=== PATIENT | male | born 1940 | race Caucasian/White ===

== ENCOUNTER 2025-01-15 13:39 | Inpatient (IN) ==
[2025-01-15] MEDS: PLASMA-LYTE A 500 ML IV ONE (14:21)
[2025-01-15 14:28] LABS: Hematocrit (blood only) 49.6 % (42.0-52.0); Hemoglobin 16.9 g/dL (14.0-18.0); Mean Corpuscular Hemoglobin 31.8 pg (25.0-34.0); Mean Corpuscular Volume 93.2 fL (80.0-100.0); Platelet Count 192 K/uL (130-400); RDW Standard Deviation 42.3 fL (36.4-46.3); Red Blood Count 5.32 M/uL (4.70-6.10); White Blood Count 14.37 K/ul (4.8-10.8)
[2025-01-15 14:48] LABS: Immature Granulocytes # (auto) 0.05 K/uL (0.01-0.20); Immature Granulocytes % (auto) 0.3 %
[2025-01-15 14:52] LABS: Alanine Aminotransferase 16.0 U/L (7-52); Albumin Globulin Ratio 1.1 (0.9-2); Albumin Level 3.9 gm/dl (3.4-5.0); Alkaline Phosphatase 113.0 U/L (34-104); Anion Gap 7.0 (3-11); Bilirubin,Total 1.0 mg/dl (0.2-1.0); Blood Urea Nitrogen 19.0 mg/dl (6-23); Calcium 9.1 mg/dl (8.6-10.3); Carbon Dioxide 27.0 mmol/L (21-32); Chloride 104.0 mmol/L (98-107); Creatinine Clr Calc Pharmacy 58.9 ml/min; Globulin 3.7 gm/dl (2.5-4.0); Glucose 127.0 mg/dl (70-99(Fasting)); Lipase 28.0 U/L (11-82); Potassium 4.2 mmol/L (3.5-5.1); Sodium 138.0 mmol/L (136-145); Total Protein 7.6 gm/dl (6.0-8.3)
[2025-01-15] MEDS: OPTIRAY 320 100ml IV ONE (15:10)
--- NOTE | 2025-01-15 15:36 | Electrocardiogram Report ---
Test Reason : Blood Pressure : */* mmHG Vent. Rate : 89 BPM Atrial Rate : 89 BPM P-R Int : 156 ms QRS Dur : 80 ms QT Int : 382 ms P-R-T Axes : 72 26 67 degrees QTcB Int : 464 ms Normal sinus rhythm Nonspecific ST and T wave abnormality Abnormal ECG No previous ECGs available Confirmed by Riaz Kelly ([id number]) on 01/15/2025 3:35:45 PM Referred By: Confirmed By: Riaz Kelly
--- NOTE | 2025-01-15 15:37 | CT Scan Report ---
CT SCAN OF THE ABDOMEN AND PELVIS WITH IV CONTRAST CLINICAL HISTORY: Severe constipation. Possible bowel obstruction. COMPARISON STUDY: None TECHNIQUE: Following the IV administration of 93 cc of Optiray 320, CT scan of the abdomen and pelvi s is performed from the lung bases to the proximal femora. Images are reviewed in the axial, sagittal , and coronal planes. IV contrast was administered without complication. A dose lowering technique wa s utilized adhering to the principles of ALARA. CT DOSE: 665.39 mGy.cm FINDINGS: Lung bases: Dependent opacities within the right lower lobe including a 8 mm focus with a lucent cent er may represent areas of atelectasis/scarring. A six-month follow-up of the 8 mm lesion would seem p rudent. There are no significant pleural effusions. There are coronary artery calcifications. Liver: There are a few tiny subcentimeter hypodensities likely representing cysts. There is no domina nt solid masses. The hepatic and portal veins appear patent. Gallbladder: Unremarkable in appearance Spleen: No splenic masses identified. Pancreas: No ductal dilatation. No pancreatic masses identified. Adrenal glands: No adrenal masses are visualized. Kidneys: No solid renal masses are visualized. There are bilateral renal cysts. Largest on the left m easures 26 mm. The largest on the right measures 44 mm. There is a nonobstructing 3 mm lower pole rig ht renal calculus. There is no hydronephrosis. Abdominal vasculature: There is no evidence for abdominal aortic dilatation atheromatous changes are present within the abdominal aorta. Bowel: There are no transition zones to indicate bowel obstruction. There is moderate stool present t hroughout the colon. The rectum is dilated measuring 7.4 cm in transverse diameter. There is mild inf iltration of the perirectal fat . There is mild presacral fluid. This constellation of findings may indicate stercoral colitis. The appendix is visualized and appears normal. Peritoneum: There is trace peritoneal fluid. There is no free intraperitoneal air. There are small fa t-containing left inguinal hernia. Lymphadenopathy: There are no pathologically enlarged abdominal or pelvic lymph nodes. Pelvic viscera: The prostate is enlarged. No bladder lesions are delineated. Skeletal structures: There are no suspicious lytic or blastic skeletal lesions. IMPRESSION: 1. Large stool burden with rectal fecal impaction. There is borderline rectal wall thickening, and mi ld infiltration of the perirectal fat, and presacral fluid. This constellation of findings may indica te stercoral colitis. 2. 8mm right lower lobe pulmonary nodule. Six-month follow-up recommended 3. Prostatomegaly 4. Bilateral renal cysts. 5. Fat-containing left inguinal hernia ACT 112: Negative or not required by law. Electronically signed by: Cleveland Wallace M.D. 01/15/2025 3:35 PM
--- NOTE | 2025-01-15 15:59 | Emergency Department Note ---
Impression & Plan Fecal impaction, Constipation, Acute lower GI bleeding, Elevated lactic acid level ED Provider Note NAME: WAYLON PATTERSON AGE: 84 SEX: M : 1940 ARRIVES VIA: Ambulance INFORMANT: Patient, EMS, family ED PROVIDER(S): Chintan Haas DO CHIEF COMPLAINT: constipation, rectal bleeding HPI: This is an 84-year-old male with the PMHx of CAD, V. tach s/p ICD, paroxysmal atrial fibrillation on sotalol and chronic anticoagulation with apixaban, hyperlipidemia and chronic constipation presenting to [facility] for further evaluation of constipation. Patient is accompanied by his son who provide additional history. Patient is traveling from [place]. Has chronic constipation. Usually relieved by Metamucil as needed. Patient tried all events. No success. Patient has not had bowel movement since . They deny fever or chills. No cough or congestion. Denies chest pain or palpitations. No shortness of breath. They deny abdominal pain, nausea and vomiting. No urinary complaints. Patient denies recent changes in medications or OTC supplements. Patient offers no other complaints, today. ADDITIONAL HISTORY OBTAINED: Per HPI Chronic Medical/Social Conditions Affecting Care: Per HPI PAST MEDICAL HISTORY: See Below PAST SURGICAL HISTORY: See Below FAMILY HISTORY: See Below SOCIAL HISTORY: See Below HOME MEDICATIONS: See Below ALLERGIES: See Below VITALS: See Below PHYSICAL EXAMINATION: GENERAL: Sitting up in bed, alert, well appearing, well nourished, no distress, non-toxic EYE EXAM: normal conjunctiva. OROPHARYNX: no exudate, no erythema, lips, buccal mucosa, and tongue normal and mucous membranes are moist NECK: supple, no nuchal rigidity, no adenopathy, non-tender LUNGS: Clear to auscultation. Normal chest wall mechanics HEART: no murmurs, regular rate, regular rhythm ABDOMEN: abdomen soft, non-tender, no masses, no rebound or guarding. BACK: Back is symmetrical on inspection and there is no deformity, no midline tenderness, no CVA tenderness. SKIN: no rashes and no bruising UPPER EXTREMITIES: upper extremities are grossly normal. LOWER EXTREMITIES: No pitting edema. NEURO EXAM: Normal sensorium, GCS 15, normal speech, no gross weakness of arms, no gross weakness of legs. MEDICAL DECISION MAKING: Differential diagnoses includes but not limited to chronic constipation, lower GI bleeding, hemorrhoidal bleeding, anemia, electrolyte derangements, dehydration In summary, this is a 84 year old male who presented with constipation with rectal bleeding. Differential as above. Nursing notes and pertinent past medical records reviewed. Vital signs reviewed and the patient is afebrile and hemodynamically stable. History and presentation revealed patient has chronic constipation. He takes MiraLAX and Metamucil. Patient is chronically anticoagulated with apixaban. Mild lower GI bleeding present. Physical examination revealed as above. As a result of my initial evaluation, I do feel the patient likely has chronic constipation that has recently worsened. Doubt acute anatomical obstruction at this time other than stool burden but still a possibility. Given his rectal bleeding on top of this with chronic anticoagulation, will obtain CT imaging as well as basic labs. Diagnostics interpreted by me include EKG and cardiac monitoring as listed below: -Cardiac Monitoring: An order was placed for continuous cardiac monitoring. The monitor shows a rate of 80-90s with regular rhythm. -ECG: Normal sinus rhythm at a ventricular rate of [address] segment changes to suggest STEMI. Intervals are within normal limits. Patient completed laboratory studies and imaging. Results independently interpreted by me are minimal leukocytosis. No significant anemia. Kidney function electrolytes are normal. Does have mild elevation in his lactate. The patient was managed with IV fluid resuscitation. Patient unable have further stool following disimpaction. Still having some rectal bleeding. High risk Whiteside scoring. Rectal bleeding more likely related to stool burden and straining. I suspect very friable rectal mucosa. Patient unable to have a bowel movement. He does not feel that he is safe to return home at this time. Patient was discussed with the hospitalist team for admission for close observation of his rectal bleeding and further stool softeners and bowel regiment for his ongoing constipation. Hospitalist team was agreeable to admit the patient. Patient remained hemodynamically stable under my care. Consults/Care Managements Discussions: Per MDM ER treatment provided: See above Procedures: Manual disimpaction Generous lubricant used yielding moderate amount of brown stool balls Minimal blood present, light pink Soap suds enema used following the procedure Critical Care: None The chart was completed utilizing [employer] voice recognition software. Grammatical errors, random word insertions, pronoun errors, and incomplete sentences are an occasional consequence of this system due to software limitations, ambient noise, and hardware issues. Any formal questions or concerns about the content, text, or information contained within the body of this dictation should be directly addressed to the physician for clarification. 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 Atrial fibrillation Hx of ventricular tachycardia Hx of basal cell carcinoma Hx of melanoma of skin HLD (hyperlipidemia) CAD (coronary artery disease) Surgical History Hx of tonsillectomy History of implantable cardiac defibrillator (ICD) battery exchange in 2023 Hx of inguinal hernia repair left History of coronary artery stent placement Family History Father Lung cancer Mother Stroke Social History Smoking Status: Former smoker Smoking End Date: 10 years; Hx Alcohol Use: Yes Alcohol type: wine Hx Substance Use: No Preferred Language: Frisian Communication Ability: Effective Seam Sewer Required: No Beliefs That Will Affect Care: None Current Living Situation: Alone Current Living Situation Comment: Patient lives home alone, but son Hilario lives close to patient. Feels Safe at Home: Yes Safety Concerns: Feels Safe At This Time Assistive Devices: Walker and Wheelchair Allergies Allergies Allergy/AdvReac Type Severity Reaction Status Date / Time house dust Allergy Mild Congested Verified 01/15/25 23:14 pollen extracts Allergy Mild Congested Verified 01/15/25 18:08 Home Meds Home Medications Medication Instructions Recorded Confirmed apixaban 5 mg tablet (Eliquis) 5 mg PO BID 01/15/25 01/15/25 artificial tears with lanolin eye 1 applic OPB HS 01/15/25 01/15/25 ointment aspirin 81 mg tablet,delayed 81 mg PO QAM 01/15/25 01/15/25 release atorvastatin 20 mg tablet 20 mg PO HS 01/15/25 01/15/25 azelastine 137 mcg (0.1 %) nasal 2 spray intranasal QA 01/15/25 01/15/25 spray doxycycline monohydrate 50 mg 50 mg PO HS 01/15/25 01/15/25 capsule furosemide 20 mg tablet 20 mg PO [facility] 01/15/25 01/15/25 metoprolol succinate 25 mg 25 mg PO QA 01/15/25 01/15/25 tablet,extended release 24 hr nitroglycerin 0.4 mg sublingual 0.4 mg sublingual UD PRN Chest Pain 01/15/25 01/15/25 tablet peg 400 0.4 %-propylene glycol 2 drp OPB QA 01/15/25 01/15/25 (PF) 0.3 % eye drops (Systane Ultra (PF)) sotalol 120 mg tablet 60 mg PO [facility] 01/15/25 01/15/25 Results & Data (ED) Vital Signs Vital Signs - 24 hr 01/15/25 16:00 Pulse Rate [Apical] 95 H Respiratory Rate 20 Respiratory Effort / Characteristics Non-Labored Spontaneous Blood Pressure [Right Arm] 140/86 Blood Pressure Mean [Right Arm] 104 Pulse Oximetry 95 Oxygen Delivery Method Room Air Laboratory Data 01/16/25 06:52 01/16/25 06:52 Lab Results 01/15/25 01/15/25 Range/Units 14:12 15:51 WBC 14.37 H (4.8-10.8) K/ul RBC 5.32 (4.70-6.10) M/uL Hgb 16.9 (14.0-18.0) g/dL Hct 49.6 (42.0-52.0) % MCV 93.2 (80.0-100.0) fL MCH 31.8 (25.0-34.0) pg MCHC 34.1 (32.0-36.0) g/dL RDW Std Deviation 42.3 (36.4-46.3) fL RDW Coeff of Hattie 12.3 (11.5-14.5) % Plt Count 192 (130-400) K/uL MPV 10.0 (9.4-12.4) fL Immature Gran % (Auto) 0.3 % Neut % (Auto) 90.9 % Lymph % (Auto) 4.9 % [place] % (Auto) 3.5 % Eos % (Auto) 0.2 % Baso % (Auto) 0.2 % Neut # (Auto) 13.05 H (1.40-6.50) K/uL Lymph # (Auto) 0.71 L (1.20-3.40) K/uL [place] # (Auto) 0.50 (0.11-0.59) K/uL Eos # (Auto) 0.03 (0.00-0.50) K/uL Baso # (Auto) 0.03 (0.00-0.20) K/uL Immature Gran # (Auto) 0.05 (0.01-0.20) K/uL Sodium 138 (136-145) mmol/L Potassium 4.2 (3.5-5.1) mmol/L Chloride 104 (98-107) mmol/L Carbon Dioxide 27 (21-32) mmol/L Anion Gap 7 (3-11) BUN 19 (6-23) mg/dl Creatinine 0.90 (0.6-1.4) mg/dl Est Cr Clr Drug Dosing 58.9 ml/min eGFR 83.18 BUN/Creatinine Ratio 21.1 H (10-20) Glucose 127 H (70-99(Fasting)) mg/dl Lactate 2.1 H* (0.4-2.0) mmol/L Calcium 9.1 (8.6-10.3) mg/dl Total Bilirubin 1.0 (0.2-1.0) mg/dl AST 24 (13-39) U/L ALT 16 (7-52) U/L Alkaline Phosphatase 113 H (34-104) U/L Troponin I High Sens 4.9 (0-20) pg/ml Total Protein 7.6 (6.0-8.3) gm/dl Albumin 3.9 (3.4-5.0) gm/dl Globulin 3.7 (2.5-4.0) gm/dl Albumin/Globulin Ratio 1.1 (0.9-2) Lipase 28 (11-82) U/L Administered Medications Aspirin (Aspirin 81 Mg Ectab) 81 mg PO [facility] Stop: 02/15/25 08:59 Last Admin: 01/16/25 08:04 Dose: 81 mg Documented By: LILLIANA Atorvastatin Calcium (Atorvastatin 20 Mg Tab) 20 mg PO [facility] Stop: 02/14/25 23:03 Last Admin: 12/01/25 23:56 Dose: 20 mg Documented By: BORIS Azelastine HCl (Azelastine Hcl 0.1% Nasal 200 Sprays/27,400 Mcg Btl) 2 sprays NA QAM [facility] Stop: 02/15/25 08:59 Last Admin: 01/16/25 08:04 Dose: 2 sprays Documented By: LILLIANA Bisacodyl (Bisacodyl 10 Mg Supp) 10 mg MI BID [facility] Stop: 02/15/25 08:59 Last Admin: 01/16/25 09:22 Dose: 10 mg Documented By: LILLIANA Doxycycline Hyclate (Doxycycline Hyclate 50 Mg Cap) 50 mg PO [facility] Stop: 02/14/25 23:03 Last Admin: 01/15/25 23:55 Dose: 50 mg Documented By: BORIS Metoprolol Succinate (Metoprolol Succ 25mg Ext Rel Tab) 25 mg PO [facility] Stop: 02/15/25 08:59 Last Admin: 01/16/25 08:04 Dose: 25 mg Documented By: LILLIANA Multi-Ingredient Cream (Artificial Tears Op Oint 3.5 Gm Tube) 1 appln OP HS [facility] Stop: 02/14/25 23:03 Last Admin: 01/15/25 23:55 Dose: 1 appln Documented By: BORIS Polyethylene Glycol (Polyethylene (Miralax) 17 Gm Pack) 17 gm PO BID [facility] Stop: 02/14/25 23:03 Last Admin: 01/16/25 08:02 Dose: 17 gm Documented By: Admin: 01/15/25 23:54 Dose: 17 gm Documented By: BORIS Senna/Docusate Sodium (Docusate Sodium/Senna 50/8.6mg Tab) 1 tab PO BID [facility] Stop: 02/14/25 23:03 Last Admin: 01/16/25 08:02 Dose: 1 tab Documented By: Admin: 01/15/25 23:55 Dose: 1 tab Documented By: BORIS Sotalol HCl (Sotalol Hcl 80 Mg Tab) 60 mg PO BID [facility] Stop: 02/14/25 23:03 Last Admin: 01/16/25 08:05 Dose: 60 mg Documented By: Admin: 01/15/25 23:59 Dose: 60 mg Documented By: MLM Discontinued Medications Parenteral Electrolytes (Plasma-Lyte A Ph 7.4) 500 mls @ 999 mls/hr IV .Q31M ONE Stop: 01/15/25 14:15 Last Infusion: 01/15/25 15:00 Dose: Infused Documented By: Admin: 01/15/25 14:21 Dose: 999 mls/hr Documented By: SERA Sodium Chloride (Nss) 1,000 mls @ 80 mls/hr IV .[id number] ALEXIS Stop: 01/16/25 06:59 Last Infusion: 01/16/25 08:07 Dose: Infused Documented By: Admin: 01/15/25 19:33 Dose: 80 mls/hr Documented By: ABRIL Sodium Chloride (Nss) 500 mls @ 999 mls/hr IV .Q31M ONE Stop: 01/15/25 21:53 Last Admin: 01/15/25 23:06 Dose: Not Given Documented By: BORIS Ioversol (Optiray 320 100ml) 93 ml IV ONCE ONE Stop: 01/15/25 15:10 Last Admin: 01/15/25 15:10 Dose: 93 ml Documented By: ABS Imaging Data Radiologist's Impression: Abdomen/Pelvis CT 01/15/25 13:46 CT SCAN OF THE ABDOMEN AND PELVIS WITH IV CONTRAST CLINICAL HISTORY: Severe constipation. Possible bowel obstruction. COMPARISON STUDY: None TECHNIQUE: Following the IV administration of 93 cc of Optiray 320, CT scan of the abdomen and pelvis is performed from the lung bases to the proximal femora. Images are reviewed in the axial, sagittal, and coronal planes. IV contrast was administered without complication. A dose lowering technique was utilized adhering to the principles of ALARA. CT DOSE: 665.39 mGy.cm FINDINGS: Lung bases: Dependent opacities within the right lower lobe including a 8 mm focus with a lucent center may represent areas of atelectasis/scarring. A six- month follow-up of the 8 mm lesion would seem prudent. There are no significant pleural effusions. There are coronary artery calcifications. Liver: There are a few tiny subcentimeter hypodensities likely representing cysts. There is no dominant solid masses. The hepatic and portal veins appear patent. Gallbladder: Unremarkable in appearance Spleen: No splenic masses identified. Pancreas: No ductal dilatation. No pancreatic masses identified. Adrenal glands: No adrenal masses are visualized. Kidneys: No solid renal masses are visualized. There are bilateral renal cysts. Largest on the left measures 26 mm. The largest on the right measures 44 mm. There is a nonobstructing 3 mm lower pole right renal calculus. There is no hydronephrosis. Abdominal vasculature: There is no evidence for abdominal aortic dilatation atheromatous changes are present within the abdominal aorta. Bowel: There are no transition zones to indicate bowel obstruction. There is moderate stool present throughout the colon. The rectum is dilated measuring 7.4 cm in transverse diameter. There is mild infiltration of the perirectal fat . There is mild presacral fluid. This constellation of findings may indicate stercoral colitis. The appendix is visualized and appears normal. Peritoneum: There is trace peritoneal fluid. There is no free intraperitoneal air. There are small fat-containing left inguinal hernia. Lymphadenopathy: There are no pathologically enlarged abdominal or pelvic lymph nodes. Pelvic viscera: The prostate is enlarged. No bladder lesions are delineated. Skeletal structures: There are no suspicious lytic or blastic skeletal lesions. IMPRESSION: 1. Large stool burden with rectal fecal impaction. There is borderline rectal wall thickening, and mild infiltration of the perirectal fat, and presacral fluid. This constellation of findings may indicate stercoral colitis. 2. 8mm right lower lobe pulmonary nodule. Six-month follow-up recommended 3. Prostatomegaly 4. Bilateral renal cysts. 5. Fat-containing left inguinal hernia ACT 112: Negative or not required by law. Electronically signed by: Cleveland Wallace M.D. 01/15/2025 3:35 PM Discharge Plan Visit Data Chief Complaint: Constipation Stated Complaint: GI BLEED ED Provider: Chintan Haas Discharge Problem: Fecal impaction, Constipation, Acute lower GI bleeding, Elevated lactic acid level Patient Disposition: Admitted As Inpatient Condition: Fair Discharge Instructions Interventions: ED Discharge Assessment Last Done: 01/15/25 22:34
--- NOTE | 2025-01-15 17:47 | History & Physical Report ---
Date of Service January 15, 2025 Assessment & Plan (1) Constipation: (2) Fecal impaction: (3) BRBPR (bright red blood per rectum): (4) CAD (coronary artery disease): (5) Atrial fibrillation: (6) snf current use of anticoagulant: Plan This is an 84-year-old male who has a significant past medical history of CAD with history of coronary angioplasty and stent placement, history of V. tach status post ICD placement with recent battery exchange in 2023, atrial fibril lation chronically anticoagulated on Eliquis and on chronic antiarrhythmic sotalol, HLD, history of melanoma, history of basal cell, chronic history of constipation treated with daily MiraLAX who presents to ED secondary to inability to have a bowel movement for 5 days. --CT abd/pelvis: Large stool burden with rectal fecal impaction. There is borderline rectal wall thickening, and mild infiltration of the perirectal fat, and presacral fluid. This constellation of findings may indicate stercoral colitis. #Constipation #Fecal Impaction #Possible Stercoral colitis admit to medical received soap suds enema and manual disimpaction in ED with mild evacuation of stool, but pt still symptomatic Senna S BID, Miralax BID, prn dulcolax suppos consider additional enemas in am but will give break tonight due to irritation/rectal bleeding consider GI if not improvement NSS x 1 L overnight, reassess in a.m. need for additional fluids Full liquid diet for now, ADAT #BRBPR suspect 2/2 constipation, friable rectal mucosa pt on asa and eliquis hold evening dose of eliquis, resume in am in bleeding resolved check h/h this evening and in a.m. admitting hgb 16 #CAD #Atrial fibrillation #Hx of vtach s/p AICD placement with battery exchanged in 2023 continue ASA, Statin, Metoprolol, sotatolol hold eliquis this evening until re evaluated in a.m. #Pulmonary Nodule - 8mm right lower lobe pulmonary nodule. Six-month follow-up recommended #DVT ppx: SCDS for now FULL CODE PCP: Dr. Cohen Dispo: admit to medical, pt is from [place], suspect possible d/c tomorrow or when pt moving bowels Pt was seen and examined in collaboration with Dr. Peña, please see addendum I spent a total of 60 minutes coordinating, documenting and providing care for this patient excluding time spent in the performance of separately billed services or time spent by another provider/QHP. History of Present Illness Chief Complaint: Constipation since . Primary Care Provider: Gennaro Cohen This is an 84-year-old male who has a significant past medical history of CAD with history of coronary angioplasty and stent placement, history of V. tach status post ICD placement with recent battery exchange in 2023, atrial fibrillation chronically anticoagulated on Eliquis and on chronic antiarrhythmic sotalol, HLD, history of melanoma, history of basal cell, chronic history of constipation treated with daily MiraLAX who presents to ED secondary to inability to have a bowel movement for 5 days. Pt is visiting from [facility]. Him and his son/family drove down for the holiday. Plan was to return this a.[place]. to [place]. He typically takes daily Metamucil and has done this since back in the . He tried 2 fleet enemas and suppository without relief. Unfortunately due to travel and dietary changes over the last few days with the holiday he has been unable to have a bowel movement. He reports nausea, No vomiting or abdominal pain. He also reports bright red blood per rectum after suppository use. in ED patient was initially hypotensive but this resolved with 1 L of IV fluid. Lab work notable for mild leukocytosis of 14,000, stable H&H at 16.9 and 49.6, mildly elevated lactate at 2.[address] abdomen pelvis reveal large stool burden with rectal fecal impaction. Borderline rectal wall thickening and mild infiltration of the perirectal fat may indicate sterile coral colitis. 8-month right lower lobe pulmonary nodule also noted. ED provider provided patient with 2 fleets enemas as well as did a manual disimpaction. He did have some success, but was unable to completely disimpact patient. He does report liquid stool as well as some bloody substance after disimpaction. Allergies Allergy/AdvReac Type Severity Reaction Status Date / Time pollen extracts Allergy Mild Congested Verified 01/15/25 18:08 dust Allergy Mild Congested Uncoded 01/15/25 18:08 Home Medications Medication Instructions Recorded Confirmed Type apixaban 5 mg tablet (Eliquis) 5 mg PO BID 01/15/25 01/15/25 History artificial tears with lanolin eye 1 applic OPB HS 01/15/25 01/15/25 History ointment aspirin 81 mg tablet,delayed 81 mg PO QAM 01/15/25 01/15/25 History release atorvastatin 20 mg tablet 20 mg PO HS 01/15/25 01/15/25 History azelastine 137 mcg (0.1 %) nasal 2 spray intranasal QAM 01/15/25 01/15/25 History spray doxycycline monohydrate 50 mg 50 mg PO HS 01/15/25 01/15/25 History capsule furosemide 20 mg tablet 20 mg PO QAM 01/15/25 01/15/25 History metoprolol succinate 25 mg 25 mg PO QAM 01/15/25 01/15/25 History tablet,extended release 24 hr nitroglycerin 0.4 mg sublingual 0.4 mg sublingual UD PRN Chest Pain 01/15/25 01/15/25 History tablet peg 400 0.4 %-propylene glycol 2 drp OPB QA 01/15/25 01/15/25 History (PF) 0.3 % eye drops (Systane Ultra (PF)) sotalol 120 mg tablet 60 mg PO AMHS 01/15/25 01/15/25 History Past Med/Surg History Problem List (Updated 01/15/25 @ 18:38 by Mery Lebron PA-C) BRBPR (bright red blood per rectum) Fecal impaction Constipation Medical History (Updated 01/15/25 @ 18:38 by Mery Lebron PA-C) 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 Atrial fibrillation Hx of ventricular tachycardia Hx of basal cell carcinoma Hx of melanoma of skin HLD (hyperlipidemia) CAD (coronary artery disease) Surgical History Hx of tonsillectomy History of implantable cardiac defibrillator (ICD) battery exchange in 2023 Hx of inguinal hernia repair left History of coronary artery stent placement Family History Father Lung cancer Mother Stroke Social History Smoking Status: Former smoker Smoking End Date: 10 years; Hx Alcohol Use: Yes Alcohol type: wine Hx Substance Use: No Preferred Language: Romanian Feels Safe at Home: Yes Review of Systems Review of Systems: All systems reviewed & are unremarkable except as noted in HPI & below Physical Exam Physical Exam: please refer to Dr. Peña addendum for physical exam findings. Results & Data Results & Data Vital Signs (Past 12 Hours) Vital Signs Temp Pulse Pulse Resp BP BP Pulse Ox 01/15/25 16:00 95 H 20 140/86 95 01/15/25 14:23 92 H 22 97/76 L 95 01/15/25 14:23 92 H 22 95 01/15/25 14:23 36.6 C 92 H 22 97/76 L 95 01/15/25 14:04 88 O2 Del Method 01/15/25 16:00 Room Air 01/15/25 14:23 Room Air 01/15/25 14:23 Room Air 01/15/25 14:23 Room Air 01/15/25 14:04 Laboratory Results I have independently reviewed and interpreted patient's admitting labs including CBC, CMP, mag, lipase and troponin. Diagnostic Findings Abdomen/Pelvis CT 01/15/25 13:46 CT SCAN OF THE ABDOMEN AND PELVIS WITH IV CONTRAST CLINICAL HISTORY: Severe constipation. Possible bowel obstruction. COMPARISON STUDY: None TECHNIQUE: Following the IV administration of 93 cc of Optiray 320, CT scan of the abdomen and pelvis is performed from the lung bases to the proximal femora. Images are reviewed in the axial, sagittal, and coronal planes. IV contrast was administered without complication. A dose lowering technique was utilized adhering to the principles of ALARA. CT DOSE: 665.39 mGy.cm FINDINGS: Lung bases: Dependent opacities within the right lower lobe including a 8 mm focus with a lucent center may represent areas of atelectasis/scarring. A six- month follow-up of the 8 mm lesion would seem prudent. There are no significant pleural effusions. There are coronary artery calcifications. Liver: There are a few tiny subcentimeter hypodensities likely representing cysts. There is no dominant solid masses. The hepatic and portal veins appear patent. Gallbladder: Unremarkable in appearance Spleen: No splenic masses identified. Pancreas: No ductal dilatation. No pancreatic masses identified. Adrenal glands: No adrenal masses are visualized. Kidneys: No solid renal masses are visualized. There are bilateral renal cysts. Largest on the left measures 26 mm. The largest on the right measures 44 mm. There is a nonobstructing 3 mm lower pole right renal calculus. There is no hydronephrosis. Abdominal vasculature: There is no evidence for abdominal aortic dilatation atheromatous changes are present within the abdominal aorta. Bowel: There are no transition zones to indicate bowel obstruction. There is moderate stool present throughout the colon. The rectum is dilated measuring 7.4 cm in transverse diameter. There is mild infiltration of the perirectal fat . There is mild presacral fluid. This constellation of findings may indicate stercoral colitis. The appendix is visualized and appears normal. Peritoneum: There is trace peritoneal fluid. There is no free intraperitoneal air. There are small fat-containing left inguinal hernia. Lymphadenopathy: There are no pathologically enlarged abdominal or pelvic lymph nodes. Pelvic viscera: The prostate is enlarged. No bladder lesions are delineated. Skeletal structures: There are no suspicious lytic or blastic skeletal lesions. IMPRESSION: 1. Large stool burden with rectal fecal impaction. There is borderline rectal wall thickening, and mild infiltration of the perirectal fat, and presacral fluid. This constellation of findings may indicate stercoral colitis. 2. 8mm right lower lobe pulmonary nodule. Six-month follow-up recommended 3. Prostatomegaly 4. Bilateral renal cysts. 5. Fat-containing left inguinal hernia ACT 112: Negative or not required by law. Electronically signed by: Cleveland Wallace M.D. 01/15/2025 3:35 PM Medications Administered Medication List Discontinued Medications Parenteral Electrolytes (Plasma-Lyte A Ph 7.4) 500 mls @ 999 mls/hr IV .Q31M ONE Stop: 01/15/25 14:15 Last Infusion: 01/15/25 15:00 Dose: Infused Documented By: Admin: 01/15/25 14:21 Dose: 999 mls/hr Documented By: SERA Ioversol (Optiray 320 100ml) 93 ml IV ONCE ONE Stop: 01/15/25 15:10 Last Admin: 01/15/25 15:10 Dose: 93 ml Documented By: ABS ECG Additional Comments: I have independently reviewed and interpreted patient's admitting EKG which revealed: 89 nsr, no st or t wave changes noted, qtc 464ms Code Status & VTE Plan Code Status FULL CODE Supervising Physician Co-Signing Physician Notes Patient is an 84-year-old male with history of atrial fibrillation on chronic anticoagulation with Eliquis, coronary artery disease, ventricular tachycardia, melanoma and other medical problems presents with history of constipation for about 4 to 5 days duration. States having abdominal discomfort associate with nausea due to constipation. He states having rectal bleed after using suppository. He admits to have hemorrhoids in the past. He was partly disimpacted while in the ED. Please review HPI for complete details of presentation. I personally reviewed blood work and imaging studies. Noted leukocytosis 14.3 7K, lactate 2.1, glucose 127, hemoglobin stable. CT abdomen showed large stool burden with rectal fecal impaction, findings suggestive of stercoral colitis. Also noted incidental right lower lobe pulmonary nodule, bilateral renal cysts and prostatomegaly. Physical Exam: Vitals signs as noted above General Appearance:Moderately built and nourished, no apparent distress Head: normocephalic, Atraumatic Eyes: normal inspection, EOMI Neck: supple, Trachea midline Respiratory/Chest: Decreased breath sounds, CTA, No accessory muscle use Cardiovascular: S1, S2, No murmur Abdomen/GI:Soft, distended, bowel sounds present, nontender, no guarding or rigidity Extremities/Musculoskeletal:normal inspection, no edema Neurologic/Psych:AAOX3, grossly no focal neurological deficits Skin: normal color, warm Fecal impaction Constipation Stercoral colitis Rectal bleed due to stercoral colitis and likely hemorrhoids Hold Eliquis Continue gentle IV fluids Trend lactate levels Agree with bowel regimen Consider GI evaluation if no improvement Obtain KUB tomorrow Liquid diet for today Will need colonoscopy as outpatient I personally interviewed and examined the patient at bedside. I have reviewed the advanced practitioner's documentation on the date of service referred in no te and agree with plan. Patient's care is coordinated with Mery Lebron PA-C. Please refer to the documentation above for details of patient's presentation and for discussion of other issues. I spent a total [id number] coordinating, documenting, and providing care for this patient excluding time spent in the performance of separately billed services or time spent by another provider/QHP.
[2025-01-15] MEDS: SODIUM CHLORIDE 0.9% 1,000 ML IV SCH (19:33)
[2025-01-15] MEDS ORDERED: ONDANSETRON INJ 2 MG/ML 2 ML VIAL IV PRN (23:04)
[2025-01-15] MEDS ORDERED: ACETAMINOPHEN 325 MG TAB PO PRN (23:04)
[2025-01-15] MEDS ORDERED: MAGNESIUM HYDROXIDE SUSP 30 ML UDC PO PRN (23:04)
[2025-01-15] MEDS: SODIUM CHLORIDE 0.9% 500 ML IV ONE (23:06)
[2025-01-15 23:42] LABS: Hematocrit (blood only) 46.9 % (42.0-52.0); Hemoglobin 15.8 g/dL (14.0-18.0)
[2025-01-15] MEDS: POLYETHYLENE (MIRALAX) 17 GM PACK PO SCH (23:54)
[2025-01-15] MEDS: DOXYCYCLINE HYCLATE 50 MG CAP PO SCH (23:55)
[2025-01-15] MEDS: ARTIFICIAL TEARS OP OINT 3.5 GM TUBE OP SCH (23:55)
[2025-01-15] MEDS: DOCUSATE SODIUM/SENNA 50/8.6MG TAB PO SCH (23:55)
[2025-01-15] MEDS: ATORVASTATIN 20 MG TAB PO SCH (23:56)
[2025-01-15] MEDS: SOTALOL HCL 80 MG TAB PO SCH (23:59)
[2025-01-16 05:28] LABS: Appearance Urine Clear (Clear); Bacteria Urine Automated None Seen (None Seen); Cast Urine Automated 0-2 /lpf (0-2); Epithelial Cell Urine Auto 0-2 /hpf (0-2); Glucose Urine UA Negative (Negative); RBC Urine Automated 0-2 /hpf (0-2); WBC Urine Automated 0-5 /hpf (0-5)
[2025-01-16 07:12] LABS: Hematocrit (blood only) 39.8 % (42.0-52.0); Hemoglobin 13.7 g/dL (14.0-18.0); Immature Granulocytes # (auto) 0.11 K/uL (0.01-0.20); Immature Granulocytes % (auto) 0.6 %; Mean Corpuscular Hemoglobin 32.0 pg (25.0-34.0); Mean Corpuscular Volume 93.0 fL (80.0-100.0); Platelet Count 161 K/uL (130-400); RDW Standard Deviation 43.8 fL (36.4-46.3); Red Blood Count 4.28 M/uL (4.70-6.10); White Blood Count 19.65 K/ul (4.8-10.8)
[2025-01-16 07:56] LABS: Alanine Aminotransferase 15.0 U/L (7-52); Albumin Globulin Ratio 1.3 (0.9-2); Albumin Level 3.3 gm/dl (3.4-5.0); Alkaline Phosphatase 79.0 U/L (34-104); Anion Gap 5.0 (3-11); Bilirubin,Total 0.9 mg/dl (0.2-1.0); Blood Urea Nitrogen 22.0 mg/dl (6-23); Calcium 8.3 mg/dl (8.6-10.3); Carbon Dioxide 29.0 mmol/L (21-32); Chloride 106.0 mmol/L (98-107); Creatinine Clr Calc Pharmacy 59.9 ml/min; Globulin 2.5 gm/dl (2.5-4.0); Glucose 134.0 mg/dl (70-99(Fasting)); Magnesium 2.1 mg/dl (1.7-2.4); Potassium 4.8 mmol/L (3.5-5.1); Sodium 140.0 mmol/L (136-145); Total Protein 5.8 gm/dl (6.0-8.3)
[2025-01-16] MEDS: ASPIRIN 81 MG ECTAB PO SCH (08:04)
[2025-01-16] MEDS: METOPROLOL SUCC 25MG EXT REL TAB PO SCH (08:04)
[2025-01-16] MEDS: AZELASTINE HCL 0.1% NASAL 200 SPRAYS/27,400 MCG BTL SCH (08:04)
--- NOTE | 2025-01-16 08:55 | XRay Report ---
KUB HISTORY: Acute generalized abdominal pain with constipation Constipation COMPARISON: CT 01/15/2025 FINDINGS: Contrast in the urinary bladder lumen. Nonobstructive bowel gas pattern. Decreased colonic stool volume compared yesterday's study which now appears to be mild to moderate. No renal calculi. No ureteral calculi. No pneumoperitoneum or pneumatosis. Mild lumbar levoscoliosis. Partially imaged cardiac pacer lead. No fracture. IMPRESSION: 1. Nonobstructive bowel gas pattern. 2. Decreased colonic fecal retention compared to yesterday's study. ACT 112: Negative or not required by law. The above report was generated using voice recognition software. It may contain grammatical, syntax o r spelling errors. Electronically signed by: Dev Haider M.D. 01/16/2025 8:54 AM
--- NOTE | 2025-01-16 14:34 | Hospitalist Progress Note ---
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 --CT abd/pelvis: Large stool burden with rectal fecal impaction. There is borderline rectal wall thickening, and mild infiltration of the perirectal fat, and presacral fluid. This constellation of findings may indicate stercoral colitis. #Constipation #Fecal Impaction #Possible Stercoral colitis #Hemorrhoidal bleed, BRBPR received soap suds enema and manual disimpaction in ED with mild evacuation of stool, but pt still symptomatic Senna S BID, Miralax BID, bhavesh dulcolax suppos Moved bloody BM (red blood) last evening and another small BM in AM which he believes didn't have blood. XR KUB w/ decreasing stool burden. adv diet, resume eliquis from pm, ensure HnH stability in AM. start anusol x 7 d for likely hemorroidal bleed. #CAD #Atrial fibrillation #Hx of vtach s/p AICD placement with battery exchanged in 2023 continue ASA, Statin, Metoprolol, sotatolol anticoag as above. #Pulmonary Nodule - 8mm right lower lobe pulmonary nodule. Six-month follow-up recommended #DVT ppx: SCDS for now FULL CODE PCP: Dr. Cohen Dispo: likely dc in AM. Admission and Anticipated Discharge Date Admission Date: January 15, 2025 Subjective patient was seen and examined at bedside. Patient was lying in bed, NAD, on room air. Patient reports moving bowel mixed with blood last evening, and moved another bowel today morning but remembers not noticing any blood in it. Patient reports having history of hemorrhoids and very rare [place] bleeds. Physical Exam Physical Exam: General Appearance:Moderately built and nourished, no apparent distress Head: normocephalic, Atraumatic Eyes: normal inspection, EOMI Neck: supple, Trachea midline Respiratory/Chest: Decreased breath sounds, CTA, No accessory muscle use Cardiovascular: S1, S2, No murmur Abdomen/GI:Soft, distended, bowel sounds present, nontender, no guarding or rigidity Extremities/Musculoskeletal:normal inspection, no edema Neurologic/Psych:AAOX3, grossly no focal neurological deficits Skin: normal color, warm Results & Data Results & Data Vital Signs (Past 12 Hours) Vital Signs Temp Pulse Resp BP Pulse Ox O2 Del Method 01/16/25 10:02 Room Air 01/16/25 07:58 36.7 C 74 18 101/47 L 93 Room Air
[2025-01-16] MEDS: APIXABAN 5 MG TABLET PO SCH (20:29)
[2025-01-16] MEDS: HYDROCORTISONE ACETATE 25 MG SUPP PR SCH (20:31)
[2025-01-17 07:42] LABS: Hematocrit (blood only) 38.2 % (42.0-52.0); Hemoglobin 12.6 g/dL (14.0-18.0); Mean Corpuscular Hemoglobin 30.9 pg (25.0-34.0); Mean Corpuscular Volume 93.6 fL (80.0-100.0); Platelet Count 139 K/uL (130-400); RDW Standard Deviation 44.3 fL (36.4-46.3); Red Blood Count 4.08 M/uL (4.70-6.10); White Blood Count 12.43 K/ul (4.8-10.8)
[2025-01-17 08:17] LABS: Anion Gap 4.0 (3-11); Blood Urea Nitrogen 14.0 mg/dl (6-23); Calcium 8.2 mg/dl (8.6-10.3); Carbon Dioxide 29.0 mmol/L (21-32); Chloride 107.0 mmol/L (98-107); Creatinine Clr Calc Pharmacy 68.0 ml/min; Glucose 106.0 mg/dl (70-99(Fasting)); Magnesium 2.1 mg/dl (1.7-2.4); Potassium 4.5 mmol/L (3.5-5.1); Sodium 140.0 mmol/L (136-145)
--- NOTE | 2025-01-17 14:03 | Hospitalist Progress Note ---
Date of Service January 17, 2025 Assessment & Plan (1) Constipation: (2) Fecal impaction: (3) BRBPR (bright red blood per rectum): (4) CAD (coronary artery disease): (5) Atrial fibrillation: (6) intermediate current use of anticoagulant: Plan 84-year-old male who has a significant past medical history of CAD with history of coronary angioplasty and stent placement, history of V. 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 --CT abd/pelvis: Large stool burden with rectal fecal impaction. There is borderline rectal wall thickening, and mild infiltration of the perirectal fat, and presacral fluid. This constellation of findings may indicate stercoral colitis. #Constipation #Fecal Impaction #Possible Stercoral colitis #Hemorrhoidal bleed, BRBPR received soap suds enema and manual disimpaction in ED with mild evacuation of stool, but pt still symptomatic Senna S BID, Miralax BID, bhavesh dulcolax suppos Moved bloody BM (red blood) last evening and another small BM in AM which he believes didn't have blood. XR KUB w/ decreasing stool burden. adv diet, resume eliquis from pm, ensure HnH stability in AM. start anusol x 7 d for likely hemorroidal bleed. Clinically a lot better and has been having bowel movement and in fact with some loose stool No more bleeding Diet has been advanced and he was advised to move around to make sure he feels better before going back to [place] Likely discharge tomorrow #CAD #Atrial fibrillation #Hx of vtach s/p AICD placement with battery exchanged in 2023 continue ASA, Statin, Metoprolol, sotatolol anticoag as above. Denies any cardiac symptoms #Pulmonary Nodule - 8mm right lower lobe pulmonary nodule. Six-month follow-up recommended No respiratory symptoms #DVT ppx: SCDS for now Has been restarted on Eliquis FULL CODE PCP: Dr. Cohen Dispo: likely dc in AM. Admission and Anticipated Discharge Date Admission Date: January 17, 2025 Subjective 01/17/2025 The patient was seen and examined in medical telemetry unit in presence of the son He was admitted with constipation and fecal impaction with hemorrhoidal bleed His bowel has been moving with laxatives and did not have any more bleeding Denies any abdominal pain, distention, nausea and/or vomiting Review of Systems Review of Systems: All systems reviewed and are unremarkable except as noted below Physical Exam Physical Exam: Lying in bed without any acute distress Constitutional: well developed and well nourished; not ill appearing Eyes: PERRL, conjunctivae normal, anicteric sclerae ENMT: external ear and nose normal, oropharynx normal Neck: trachea midline, no thyromegaly Respiratory: no respiratory distress Auscultation: lungs clear to auscultation bilaterally Cardiovascular: Rate/Rhythm: regular rate, regular rhythm and + bradycardic Heart Sounds: normal S1 and normal S2; no murmur Extremities: no edema Gastrointestinal (Abdomen): Inspection/Auscultation: normal bowel sounds; abdomen not distended Percussion/Palpation: abdomen soft; abdomen nontender Musculoskeletal: No acute arthritis involving any of the joint Neurologic: normal touch/pain/proprioception and moves all extremities; no focal motor deficits Psychiatric: A+Ox3, euthymic affect Lymphatic: no cervical or axillary lymphadenopathy Results & Data Results & Data Vital Signs (Past 12 Hours) Vital Signs Temp Pulse Resp BP Pulse Ox O2 Del Method 01/17/25 08:03 36.8 C 52 L 22 128/77 95 Room Air Laboratory Results Short CBC 01/17/25 Range/Units 07:07 WBC 12.43 H (4.8-10.8) K/ul Hgb 12.6 L (14.0-18.0) g/dL Hct 38.2 L (42.0-52.0) % Plt Count 139 (130-400) K/uL BMP 01/17/25 07:07 Sodium 140 Potassium 4.5 Chloride 107 Carbon Dioxide 29 BUN 14 Creatinine 0.74 Glucose 106 H Calcium 8.2 L Medications Administered Current Inpatient Medications Acetaminophen (Acetaminophen 325 Mg Tab) 650 mg PO Q4H PRN PRN Reason: pain/fever Stop: 02/14/25 23:03 Apixaban (Apixaban 5 Mg Tablet) 5 mg PO BID BAHVESH Stop: 02/15/25 20:59 Last Admin: 01/17/25 07:46 Dose: 5 mg Aspirin (Aspirin 81 Mg Ectab) 81 mg PO [facility] Stop: 02/15/25 08:59 Last Admin: 01/17/25 07:47 Dose: 81 mg Atorvastatin Calcium (Atorvastatin 20 Mg Tab) 20 mg PO [facility] Stop: 02/14/25 23:03 Last Admin: 01/16/25 20:30 Dose: 20 mg Azelastine HCl (Azelastine Hcl 0.1% Nasal 200 Sprays/27,400 Mcg Btl) 2 sprays NA [facility] Stop: 02/15/25 08:59 Last Admin: 01/17/25 07:46 Dose: 2 sprays Bisacodyl (Bisacodyl 10 Mg Supp) 10 mg [facility] BID [facility] Stop: 02/15/25 08:59 Last Admin: 01/17/25 07:42 Dose: Not Given Doxycycline Hyclate (Doxycycline Hyclate 50 Mg Cap) 50 mg PO [facility] Stop: 02/14/25 23:03 Last Admin: 01/16/25 20:31 Dose: 50 mg Hydrocortisone (Hydrocortisone Acetate 25 Mg Supp) 25 mg [facility] B[facility] Stop: 01/23/25 20:59 Last Admin: 01/17/25 07:49 Dose: 25 mg Magnesium Hydroxide (Magnesium Hydroxide Susp 30 Ml Udc) 30 ml PO Q6H PRN PRN Reason: Constipation Stop: 02/14/25 23:03 Metoprolol Succinate (Metoprolol Succ 25mg Ext Rel Tab) 25 mg PO [facility] Stop: 02/15/25 08:59 Last Admin: 01/17/25 07:47 Dose: 25 mg Multi-Ingredient Cream (Artificial Tears Op Oint 3.5 Gm Tube) 1 appln OP [facility] Stop: 02/14/25 23:03 Last Admin: 01/16/25 20:29 Dose: 1 appln Ondansetron HCl (Ondansetron Inj 2 Mg/Ml 2 Ml Vial) 4 mg IV Q6H PRN PRN Reason: Nausea Stop: 02/14/25 23:03 Polyethylene Glycol (Polyethylene (Miralax) 17 Gm Pack) 17 gm PO BID [facility] Stop: 02/14/25 23:03 Last Admin: 01/17/25 07:45 Dose: 17 gm Senna/Docusate Sodium (Docusate Sodium/Senna 50/8.6mg Tab) 1 tab PO BID [facility]ESH Stop: 02/14/25 23:03 Last Admin: 01/17/25 07:46 Dose: 1 tab Sotalol HCl (Sotalol Hcl 80 Mg Tab) 60 mg PO BID [facility] Stop: 02/14/25 23:03 Last Admin: 01/17/25 07:47 Dose: 60 mg
[2025-01-17] MEDS ORDERED: SODIUM PHOSPHATE 3 MMOL/1 ML 5 ML VIAL IV ONE (14:05)
[2025-01-17] MEDS: SODIUM PHOSPHATE IV ONE (14:33)
[2025-01-17] MEDS: SODIUM CHLORIDE 0.9% IV ONE (14:33)
[2025-01-17 22:49] VITALS: RESP 16; O2SAT 97
[2025-01-18 07:30] VITALS: BP 133/75; PULSE 67; TEMP 97.7
[2025-01-18 09:30] LABS: Anion Gap 5.0 (3-11); Blood Urea Nitrogen 12.0 mg/dl (6-23); Calcium 8.5 mg/dl (8.6-10.3); Carbon Dioxide 29.0 mmol/L (21-32); Chloride 105.0 mmol/L (98-107); Creatinine Clr Calc Pharmacy 67.1 ml/min; Glucose 124.0 mg/dl (70-99(Fasting)); Magnesium 2.1 mg/dl (1.7-2.4); Potassium 4.0 mmol/L (3.5-5.1); Sodium 139.0 mmol/L (136-145)
--- NOTE | 2025-01-18 11:39 | Hospitalist Progress Note ---
Date of Service January 18, 2025 Assessment & Plan (1) Constipation: (2) Fecal impaction: (3) BRBPR (bright red blood per rectum): (4) CAD (coronary artery disease): (5) Atrial fibrillation: (6) jail current use of anticoagulant: Plan 84-year-old male who has a significant past medical history of CAD with history of coronary angioplasty and stent placement, history of V. 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 --CT abd/pelvis: Large stool burden with rectal fecal impaction. There is borderline rectal wall thickening, and mild infiltration of the perirectal fat, and presacral fluid. This constellation of findings may indicate stercoral colitis. #Constipation #Fecal Impaction #Possible Stercoral colitis #Hemorrhoidal bleed, BRBPR received soap suds enema and manual disimpaction in ED with mild evacuation of stool, but pt still symptomatic Senna S BID, Miralax BID, bhavesh dulcolax suppos Moved bloody BM (red blood) last evening and another small BM in AM which he believes didn't have blood. XR KUB w/ decreasing stool burden. adv diet, resume eliquis from pm, ensure HnH stability in AM. start anusol x 7 d for likely hemorroidal bleed. Clinically a lot better and has been having bowel movement and in fact with some loose stool No more bleeding Diet has been advanced and he was advised to move around to make sure he feels better before going back to [place] Has been having loose stool and was advised to continue MiraLAX to have regular bowel movement daily or even 2 times a day No more episodes of bleeding and denies any abdominal pain Electrolytes are normalized and he will be discharged this afternoon Continue Anusol for 7 days in total #CAD #Atrial fibrillation #Hx of vtach s/p AICD placement with battery exchanged in 2023 continue ASA, Statin, Metoprolol, sotatolol anticoag as above. Denies any cardiac symptoms #Pulmonary Nodule - 8mm right lower lobe pulmonary nodule. Six-month follow-up recommended No respiratory symptoms He will be advised to have a 6-month follow-up of further 8 mm right lower lobe pulmonary nodule through his primary care provider #DVT ppx: SCDS for now Has been restarted on Eliquis FULL CODE PCP: Dr. Cohen Dispo: will be discharged this afternoon Admission and Anticipated Discharge Date Admission Date: January 17, 2025 Subjective 01/17/2025 The patient was seen and examined in medical telemetry unit in presence of the son He was admitted with constipation and fecal impaction with hemorrhoidal bleed His bowel has been moving with laxatives and did not have any more bleeding Denies any abdominal pain, distention, nausea and/or vomiting 01/18/2025 The patient was seen and examined in medical floor in presence of the son He has been much better and denies any abdominal pain, nausea vomiting or diarrhea He has been having soft stool without any more evidence of bleeding He will be discharged home today Review of Systems Review of Systems: All systems reviewed and are unremarkable except as noted below Physical Exam Physical Exam: Lying in bed without any acute distress Constitutional: well developed and well nourished; not ill appearing Eyes: PERRL, conjunctivae normal, anicteric sclerae ENMT: external ear and nose normal, oropharynx normal Neck: trachea midline, no thyromegaly Respiratory: no respiratory distress Auscultation: lungs clear to auscultation bilaterally Cardiovascular: Rate/Rhythm: regular rate, regular rhythm and + bradycardic Heart Sounds: normal S1 and normal S2; no murmur Extremities: no edema Gastrointestinal (Abdomen): Inspection/Auscultation: normal bowel sounds; abdomen not distended Percussion/Palpation: abdomen soft; abdomen nontender Musculoskeletal: No acute arthritis involving any of the joint Neurologic: normal touch/pain/proprioception and moves all extremities; no focal motor deficits Psychiatric: A+Ox3, euthymic affect Lymphatic: no cervical or axillary lymphadenopathy Results & Data Results & Data Vital Signs (Past 12 Hours) Vital Signs Temp Pulse Resp BP Pulse Ox O2 Del Method 01/18/25 07:30 36.5 C 67 16 133/75 97 Room Air Laboratory Results BMP 01/18/25 08:38 Sodium 139 Potassium 4.0 Chloride 105 Carbon Dioxide 29 BUN 12 Creatinine 0.75 Glucose 124 H Calcium 8.5 L Medications Administered Current Inpatient Medications Acetaminophen (Acetaminophen 325 Mg Tab) 650 mg PO Q4H PRN PRN Reason: pain/fever Stop: 02/14/25 23:03 Apixaban (Apixaban 5 Mg Tablet) 5 mg PO BID [facility] Stop: 02/15/25 20:59 Last Admin: 01/18/25 09:52 Dose: 5 mg Aspirin (Aspirin 81 Mg Ectab) 81 mg PO [facility] Stop: 02/15/25 08:59 Last Admin: 01/18/25 09:51 Dose: 81 mg Atorvastatin Calcium (Atorvastatin 20 Mg Tab) 20 mg PO [facility] Stop: 02/14/25 23:03 Last Admin: 01/17/25 20:35 Dose: 20 mg Azelastine HCl (Azelastine Hcl 0.1% Nasal 200 Sprays/27,400 Mcg Btl) 2 sprays NA [facility] Stop: 02/15/25 08:59 Last Admin: 01/18/25 09:51 Dose: 2 sprays Bisacodyl (Bisacodyl 10 Mg Supp) 10 mg [place] BID [facility] Stop: 02/15/25 08:59 Last Admin: 01/18/25 09:57 Dose: Not Given Doxycycline Hyclate (Doxycycline Hyclate 50 Mg Cap) 50 mg PO [facility] Stop: 02/14/25 23:03 Last Admin: 01/17/25 20:35 Dose: 50 mg Hydrocortisone (Hydrocortisone Acetate 25 Mg Supp) 25 mg [place] BID [facility] Stop: 01/23/25 20:59 Last Admin: 01/18/25 09:52 Dose: 25 mg Magnesium Hydroxide (Magnesium Hydroxide Susp 30 Ml Udc) 30 ml PO Q6H PRN PRN Reason: Constipation Stop: 02/14/25 23:03 Metoprolol Succinate (Metoprolol Succ 25mg Ext Rel Tab) 25 mg PO [facility] Stop: 02/15/25 08:59 Last Admin: 01/18/25 09:52 Dose: 25 mg Multi-Ingredient Cream (Artificial Tears Op Oint 3.5 Gm Tube) 1 appln OP [facility] Stop: 02/14/25 23:03 Last Admin: 01/17/25 20:34 Dose: 1 appln Ondansetron HCl (Ondansetron Inj 2 Mg/Ml 2 Ml Vial) 4 mg IV Q6H PRN PRN Reason: Nausea Stop: 02/14/25 23:03 Polyethylene Glycol (Polyethylene (Miralax) 17 Gm Pack) 17 gm PO BID [facility] Stop: 02/14/25 23:03 Last Admin: 01/18/25 09:58 Dose: Not Given Senna/Docusate Sodium (Docusate Sodium/Senna 50/8.6mg Tab) 1 tab PO BID [facility] Stop: 02/14/25 23:03 Last Admin: 01/18/25 09:58 Dose: Not Given Sotalol HCl (Sotalol Hcl 80 Mg Tab) 60 mg PO BID [facility] Stop: 02/14/25 23:03 Last Admin: 01/18/25 09:50 Dose: 60 mg
--- NOTE | 2025-01-18 12:41 | Discharge Summary ---
Date of Service January 18, 2025 Admission HPI Per Admitting Provider This is an 84-year-old male who has a significant past medical history of CAD with history of coronary angioplasty and stent placement, history of V. tach status post ICD placement with recent battery exchange in 2023, atrial fibrillation chronically anticoagulated on Eliquis and on chronic antiarrhythmic sotalol, HLD, history of melanoma, history of basal cell, chronic history of constipation treated with daily MiraLAX who presents to ED secondary to inability to have a bowel movement for 5 days. Pt is visiting from [facility]. Him and his son/family drove down for the holiday. Plan was to return this a.m. to [place]. He typically takes daily Metamucil and has done this since back in the . He tried 2 fleet enemas and suppository without relief. Unfortunately due to travel and dietary changes over the last few days with the holiday he has been unable to have a bowel movement. He reports nausea, No vomiting or abdominal pain. He also reports bright red blood per rectum after suppository use. in ED patient was initially hypotensive but this resolved with 1 L of IV fluid. Lab work notable for mild leukocytosis of 14,000, stable H&H at 16.9 and 49.6, mildly elevated lactate at 2.[address] abdomen pelvis reveal large stool burden with rectal fecal impaction. Borderline rectal wall thickening and mild infiltration of the perirectal fat may indicate sterile coral colitis. 8-month right lower lobe pulmonary nodule also noted. ED provider provided patient with 2 fleets enemas as well as did a manual disimpaction. He did have some success, but was unable to completely disimpact patient. He does report liquid stool as well as some bloody substance after disimpaction. Admission Exam Per Admitting Provider Physical Exam: Lying in bed without any acute distress Constitutional: well developed and well nourished; not ill appearing Eyes: PERRL, conjunctivae normal, anicteric sclerae ENMT: external ear and nose normal, oropharynx normal Neck: trachea midline, no thyromegaly Respiratory: no respiratory distress Auscultation: lungs clear to auscultation bilaterally Cardiovascular: Rate/Rhythm: regular rate, regular rhythm and + bradycardic Heart Sounds: normal S1 and normal S2; no murmur Extremities: no edema Gastrointestinal (Abdomen): Inspection/Auscultation: normal bowel sounds; abdomen not distended Percussion/Palpation: abdomen soft; abdomen nontender Musculoskeletal: No acute arthritis involving any of the joint Neurologic: normal touch/pain/proprioception and moves all extremities; no focal motor deficits Psychiatric: A+Ox3, euthymic affect Lymphatic: no cervical or axillary lymphadenopathy Principal Diagnosis Constipation, fecal impaction, hemorrhoidal bleed, atrial fibrillation Discharge Exam Lying in bed without any acute distress Constitutional well developed and well nourished; not ill appearing Eyes PERRL, conjunctivae normal, anicteric sclerae ENMT external ear and nose normal, oropharynx normal Neck trachea midline, no thyromegaly Respiratory no respiratory distress Auscultation: lungs clear to auscultation bilaterally Cardiovascular Rate/Rhythm: regular rate, regular rhythm and + bradycardic Heart Sounds: normal S1 and normal S2; no murmur Extremities: no edema Gastrointestinal (Abdomen) Inspection/Auscultation: normal bowel sounds; abdomen not distended Percussion/Palpation: abdomen soft; abdomen nontender Neurologic normal touch/pain/proprioception and moves all extremities; no focal motor deficits Psychiatric A+Ox3, euthymic affect Lymphatic no cervical or axillary lymphadenopathy Discharge Data Allergies Allergy/AdvReac Type Severity Reaction Status Date / Time house dust Allergy Mild Congested Verified 01/15/25 23:14 pollen extracts Allergy Mild Congested Verified 01/15/25 18:08 Consultations 01/15/25 17:22 ED Decision to Admit Stat Procedures Performed Laboratory Results WBC 12.43 K/ul (4.8-10.8) H 01/17/25 07:07 RBC 4.08 M/uL (4.70-6.10) L 01/17/25 07:07 Hgb 12.6 g/dL (14.0-18.0) L 01/17/25 07:07 Hct 38.2 % (42.0-52.0) L 01/17/25 07:07 MCV 93.6 fL (80.0-100.0) 01/17/25 07:07 MCH 30.9 pg (25.0-34.0) 01/17/25 07:07 MCHC 33.0 g/dL (32.0-36.0) 01/17/25 07:07 RDW Std Deviation 44.3 fL (36.4-46.3) 01/17/25 07:07 RDW Coeff of Hattie 12.9 % (11.5-14.5) 01/17/25 07:07 Plt Count 139 K/uL (130-400) 01/17/25 07:07 MPV 10.2 fL (9.4-12.4) 01/17/25 07:07 Immature Gran % (Auto) 0.6 % 01/16/25 06:52 Neut % (Auto) 85.5 % 01/16/25 06:52 Lymph % (Auto) 7.2 % 01/16/25 06:52 Mathews % (Auto) 6.4 % 01/16/25 06:52 Eos % (Auto) 0.1 % 01/16/25 06:52 Baso % (Auto) 0.2 % 01/16/25 06:52 Neut # (Auto) 16.82 K/uL (1.40-6.50) H 01/16/25 06:52 Lymph # (Auto) 1.42 K/uL (1.20-3.40) 01/16/25 06:52 Mathews # (Auto) 1.26 K/uL (0.11-0.59) H 01/16/25 06:52 Eos # (Auto) 0.01 K/uL (0.00-0.50) 01/16/25 06:52 Baso # (Auto) 0.03 K/uL (0.00-0.20) 01/16/25 06:52 Immature Gran # (Auto) 0.11 K/uL (0.01-0.20) 01/16/25 06:52 Sodium 139 mmol/L (136-145) 01/18/25 08:38 Potassium 4.0 mmol/L (3.5-5.1) 01/18/25 08:38 Chloride 105 mmol/L (98-107) 01/18/25 08:38 Carbon Dioxide 29 mmol/L (21-32) 01/18/25 08:38 Anion Gap 5 (3-11) 01/18/25 08:38 BUN 12 mg/dl (6-23) 01/18/25 08:38 Creatinine 0.75 mg/dl (0.6-1.4) 01/18/25 08:38 Est Cr Clr Drug Dosing 67.1 ml/min 01/18/25 08:38 eGFR 87.89 01/18/25 08:38 BUN/Creatinine Ratio 16.0 (10-20) 01/18/25 08:38 Glucose 124 mg/dl (70-99(Fasting)) H 01/18/25 08:38 Lactate 2.7 mmol/L (0.4-2.0) H* 01/15/25 23:25 Calcium 8.5 mg/dl (8.6-10.3) L 01/18/25 08:38 Phosphorus 2.6 mg/dl (2.5-4.9) 01/18/25 08:38 Magnesium 2.1 mg/dl (1.7-2.4) 01/18/25 08:38 Total Bilirubin 0.9 mg/dl (0.2-1.0) 01/16/25 06:52 AST 18 U/L (13-39) 01/16/25 06:52 ALT 15 U/L (7-52) 01/16/25 06:52 Alkaline Phosphatase 79 U/L (34-104) 01/16/25 06:52 Troponin I High Sens 4.9 pg/ml (0-20) 01/15/25 14:12 Total Protein 5.8 gm/dl (6.0-8.3) L D 01/16/25 06:52 Albumin 3.3 gm/dl (3.4-5.0) L 01/16/25 06:52 Globulin 2.5 gm/dl (2.5-4.0) 01/16/25 06:52 Albumin/Globulin Ratio 1.3 (0.9-2) 01/16/25 06:52 Lipase 28 U/L (11-82) 01/15/25 14:12 Urine Color Dark Yellow 01/16/25 05:15 Urine Appearance Clear (Clear) 01/16/25 05:15 Urine pH 5.5 (4.5-7.5) 01/16/25 05:15 Ur Specific Standish > 1.045 (1.000-1.030) H 01/16/25 05:15 Urine Protein Trace (Negative) H 01/16/25 05:15 Urine Glucose (UA) Negative (Negative) 01/16/25 05:15 Urine Ketones Trace (Negative) H 01/16/25 05:15 Urine Blood Negative (Negative) 01/16/25 05:15 Urine Nitrite Negative (Negative) 01/16/25 05:15 Urine Bilirubin Negative (Negative) 01/16/25 05:15 Urine Urobilinogen Negative (Negative) 01/16/25 05:15 Ur Leukocyte Esterase Trace (Negative) H 01/16/25 05:15 Urine WBC (Auto) 0-5 /hpf (0-5) 01/16/25 05:15 Urine RBC (Auto) 0-2 /hpf (0-2) 01/16/25 05:15 U Hyaline Cast (Auto) 0-2 /lpf (0-2) 01/16/25 05:15 U Epithel Cells (Auto) 0-2 /hpf (0-2) 01/16/25 05:15 Urine Bacteria (Auto) None Seen (None Seen) 01/16/25 05:15 Urine Comment 01/16/25 05:15 Impressions Abdomen/Pelvis CT 01/15/25 13:46 CT SCAN OF THE ABDOMEN AND PELVIS WITH IV CONTRAST CLINICAL HISTORY: Severe constipation. Possible bowel obstruction. COMPARISON STUDY: None TECHNIQUE: Following the IV administration of 93 cc of Optiray 320, CT scan of the abdomen and pelvis is performed from the lung bases to the proximal femora. Images are reviewed in the axial, sagittal, and coronal planes. IV contrast was administered without complication. A dose lowering technique was utilized a dhering to the principles of ALARA. CT DOSE: 665.39 mGy.cm FINDINGS: Lung bases: Dependent opacities within the right lower lobe including a 8 mm focus with a lucent center may represent areas of atelectasis/scarring. A six- month follow-up of the 8 mm lesion would seem prudent. There are no significant pleural effusions. There are coronary artery calcifications. Liver: There are a few tiny subcentimeter hypodensities likely representing cysts. There is no dominant solid masses. The hepatic and portal veins appear patent. Gallbladder: Unremarkable in appearance Spleen: No splenic masses identified. Pancreas: No ductal dilatation. No pancreatic masses identified. Adrenal glands: No adrenal masses are visualized. Kidneys: No solid renal masses are visualized. There are bilateral renal cysts. Largest on the left measures 26 mm. The largest on the right measures 44 mm. There is a nonobstructing 3 mm lower pole right renal calculus. There is no hydronephrosis. Abdominal vasculature: There is no evidence for abdominal aortic dilatation atheromatous changes are present within the abdominal aorta. Bowel: There are no transition zones to indicate bowel obstruction. There is moderate stool present throughout the colon. The rectum is dilated measuring 7.4 cm in transverse diameter. There is mild infiltration of the perirectal fat . There is mild presacral fluid. This constellation of findings may indicate stercoral colitis. The appendix is visualized and appears normal. Peritoneum: There is trace peritoneal fluid. There is no free intraperitoneal air. There are small fat-containing left inguinal hernia. Lymphadenopathy: There are no pathologically enlarged abdominal or pelvic lymph nodes. Pelvic viscera: The prostate is enlarged. No bladder lesions are delineated. Skeletal structures: There are no suspicious lytic or blastic skeletal lesions. IMPRESSION: 1. Large stool burden with rectal fecal impaction. There is borderline rectal wall thickening, and mild infiltration of the perirectal fat, and presacral fluid. This constellation of findings may indicate stercoral colitis. 2. 8mm right lower lobe pulmonary nodule. Six-month follow-up recommended 3. Prostatomegaly 4. Bilateral renal cysts. 5. Fat-containing left inguinal hernia ACT 112: Negative or not required by law. Electronically signed by: Cleveland Wallace M.D. 01/15/2025 3:35 PM KUB X-Ray 01/16/25 07:00 KUB HISTORY: Acute generalized abdominal pain with constipation Constipation COMPARISON: CT 01/15/2025 FINDINGS: Contrast in the urinary bladder lumen. Nonobstructive bowel gas pattern. Decreased colonic stool volume compared yesterday's study which now appears to be mild to moderate. No renal calculi. No ureteral calculi. No pneumoperitoneum or pneumatosis. Mild lumbar levoscoliosis. Partially imaged cardiac pacer lead. No fracture. IMPRESSION: 1. Nonobstructive bowel gas pattern. 2. Decreased colonic fecal retention compared to yesterday's study. ACT 112: Negative or not required by law. The above report was generated using voice recognition software. It may contain grammatical, syntax or spelling errors. Electronically signed by: Dev Haider M.D. 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 --CT abd/pelvis: Large stool burden with rectal fecal impaction. There is borderline rectal wall thickening, and mild infiltration of the perirectal fat, and presacral fluid. This constellation of findings may indicate stercoral colitis. #Constipation #Fecal Impaction #Possible Stercoral colitis #Hemorrhoidal bleed, BRBPR received soap suds enema and manual disimpaction in ED with mild evacuation of stool, but pt still symptomatic Senna S BID, Miralax BID, bhavesh dulcolax suppos Moved bloody BM (red blood) last evening and another small BM in AM which he believes didn't have blood. XR KUB w/ decreasing stool burden. adv diet, resume eliquis from pm, ensure HnH stability in AM. start anusol x 7 d for likely hemorroidal bleed. Clinically a lot better and has been having bowel movement and in fact with some loose stool No more bleeding Diet has been advanced and he was advised to move around to make sure he feels better before going back to [place] Has been having loose stool and was advised to continue MiraLAX to have regular bowel movement daily or even 2 times a day No more episodes of bleeding and denies any abdominal pain Electrolytes are normalized and he will be discharged this afternoon Continue Anusol for 7 days in total #CAD #Atrial fibrillation #Hx of vtach s/p AICD placement with battery exchanged in 2023 continue ASA, Statin, Metoprolol, sotatolol anticoag as above. Denies any cardiac symptoms #Pulmonary Nodule - 8mm right lower lobe pulmonary nodule. Six-month follow-up recommended No respiratory symptoms He will be advised to have a 6-month follow-up of further 8 mm right lower lobe pulmonary nodule through his primary care provider #DVT ppx: SCDS for now Has been restarted on Eliquis FULL CODE PCP: Dr. Cohen Dispo: will be discharged this afternoon Total Time Total Time Spent Total Time Spent (In Minutes): 35 Minutes Discharge Plan Discharge Items Patient Disposition: Home - Self-Care Reason For Visit: CONSTIPATION, STERCORAL COLITIS Discharge Diagnosis: Constipation, fecal impaction, hemorrhoidal bleed, atrial fibrillation Condition on Discharge: Good Activity: Resume your previous activity Non-emergency contact: Primary Care Provider Call non-emergency contact if: you have any medication questions and your symptoms worsen Follow-up/Referrals: Gennaro Cohen M.D. [Primary Care Provider] - ( please make an appointment with your PCP within 7 days) Diet: Heart Healthy Addtl Attending Provider Instructions: please take precautions to avoid falls Take Metamucil once or twice a day to have regular bowel movement Take reasonable amounts of vegetables and also fluid to avoid dehydration You will need to have a follow-up of CT of the chest in 6-month for an 8 mm right lower lobe pulmonary nodule Pending Studies at Discharge: No Stand-Alone Forms: [facility] Cess[facility] Medications and DC Order Prescriptions: New polyethylene glycol 3350 [Miralax] 17 gram Powder In Packet 17 g PO DAILY Qty: 30 0RF sennosides-docusate sodium [Senokot-S] 8.6-50 mg Tablet 1 tab PO BID Qty: 60 0RF hydrocortisone acetate [Anucort-HC] 25 mg Suppository 25 mg NM BID Qty: 10 0RF Continued sotalol 120 mg tablet 60 mg PO [facility] Rx Instructions: 1/2 tablet dose doxycycline monohydrate 50 mg capsule 50 mg PO HS furosemide 20 mg tablet 20 mg PO QAM metoprolol succinate 25 mg tablet extended release 24 hr 25 mg PO QAM azelastine 137 mcg (0.1 %) spray,non-aerosol 2 spray INTRANASAL QAM Eliquis 5 mg tablet 5 mg PO BID nitroglycerin 0.4 mg tablet, sublingual 0.4 mg sublingual UD PRN (Reason: Chest Pain) atorvastatin 20 mg tablet 20 mg PO HS aspirin [Aspirin Low-Strength] 81 mg Tablet,Delayed Release (Dr/Ec) 81 mg PO QAM Refresh P.M. (lanolin) Ointment 1 applic OPB HS Systane Ultra (PF) 0.4-0.3 % Drops 2 drp OPB QAM Discharge Orders: Discharge Order (Routine); Ordered 01/18/25 Ordered By: Collin Perdomo Admission Data Admit Date/Time: 01/17/25 10:35 Attending Provider: Collin Perdomo Admit Provider: Tyree Peña Primary Care Provider: Gennaro Cohen Other Providers: Tyree Peña; Daniel Mahmood
== END 2025-01-18 13:33 | disposition home or self-care (01) | DRG 392 ==
LOC: ED 13:39 → 3N 13:39 → SUATTDRO 17:58 → 3N 22:34